=== PATIENT | female | born 1930 | race Caucasian/White ===

== ENCOUNTER 2016-03-17 11:19 | Emergency (ER) | payer MEDICARE, OTHER ==
--- NOTE | 2016-03-17 14:11 | ER Document Report ---
ED Hip Pain/Injury - General Chief Complaint: Hip Pain Stated Complaint: FALL;HIP PAIN Mode of Arrival: Ambulatory Information source: Patient Notes: 85 y/o F presents to ED c/o right anterior hip pain intermittently persistent approximately over the last 3 weeks. Pt reports pain is non-radiating and worse with movement of right leg, weight bearing, and ambulation. States has to lean on right leg due to chronic left leg weakness. had left hip replacement approximately 5 yrs ago but has not had any procedures on right hip. Reports was walking in her home today when the pain caused her to gradually fall. States did not directly strike hip, head, neck, or back. 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 Denies fever or recent illness, abd pain, n/v, dysuria or hematuria, blood in stool, erythema/ bruising/warmth to hip, swelling or color changes to extremity. - HPI Patient complains to provider of: Hip Where: Home Onset/Duration: Intermittent, Persistent Quality of pain: Achy Severity: Moderate Pain Level: 3 Symptoms prior to fall: None Symptoms since fall: None Skin Color: Normal Skin Temperature: Warm Rotation of extremity: None Pain with palpation of the pelvis: No Use of anticoagulant: No: ASA, Lovenox, Plavix, Pradexa, Warfarin Associated Symptoms: None. denies: Loss of control/bowel, Loss of control/ bladder, Motor loss, Sensory loss, Other - Related Data Allergies/Adverse Reactions: Penicillins Allergy (Severe, Verified 04/08/12 09:46) Hives Sulfa (Sulfonamide Antibiotics) Allergy (Severe, Verified 04/08/12 09:46) Hives Past Medical History - General Information source: Patient - Social History Smoking Status: Never Smoker Frequency of alcohol use: None Drug Abuse: None Lives with: Alone Family History: Reviewed & Not Pertinent - Past Medical History Cardiac Medical History: Denies: Hx Atrial Fibrillation, Hx Congestive Heart Failure, Hx Coronary Artery Disease, Hx Heart Attack, Hx Hypercholesterolemia, Hx Hypertension, Hx Peripheral Vascular Disease, Hx Pulmonary Embolism, Hx Heart Murmur Pulmonary Medical History: Reports: Hx Bronchitis, Hx COPD Denies: Hx Asthma, Hx Pneumonia, Hx Respiratory Failure, Hx Sleep Apnea, Hx Tuberculosis Neurological Medical History: Denies: Hx Cerebrovascular Accident, Hx Seizures Endocrine Medical History: Reports: Hx Hyperthyroidism - no meds//thyroid sx. Denies: Hx Graves' Disease, Hx Hypothyroidism Renal/ Medical History: Denies: Hx End Stage Renal Disease, Hx Ovarian Cysts, Hx Peritoneal Dialysis, Hx Pelvic Inflammatory Disease Malignancy Medical History: Denies: Hx Breast Cancer, Hx Cervical Cancer, Hx Leukemia, Hx Lung Cancer, Hx Ovarian Cancer GI Medical History: Reports: Hx Gastroesophageal Reflux Disease. Denies: Hx Crohn's Disease, Hx Hiatal Hernia, Hx Irritable Bowel, Hx Liver Failure, Hx Ulcer Musculoskeltal Medical History: Reports Hx Arthritis, Denies Hx Fibromyalgia, Denies Hx Multiple Sclerosis, Denies Hx Muscular Dystrophy Psychiatric Medical History: Denies: Hx Bipolar Disorder, Hx Dementia, Hx Depression, Hx Post Traumatic Stress Disorder, Hx Schizophrenia Traumatic Medical History: Denies: Hx Fractures Infectious Medical History: Denies: Hx HIV Past Surgical History: Reports: Hx Appendectomy - 2006, Hx Hysterectomy - 1971, Hx Orthopedic Surgery - neck, back, knee, left hip, Hx Tonsillectomy - as child. Denies: Hx Bowel Surgery, Hx Section, Hx Cholecystectomy, Hx Colostomy, Hx Coronary Artery Bypass Graft, Hx Gastric Bypass Surgery, Hx Herniorrhaphy, Hx Mastectomy, Hx Pacemaker, Hx Tubal Ligation - Immunizations Hx Diphtheria, Pertussis, Tetanus Vaccination: Yes Hx Pneumococcal Vaccination: 12/07/09 Review of Systems - Review of Systems Constitutional: No symptoms reported EENT: No symptoms reported Cardiovascular: No symptoms reported Respiratory: No symptoms reported Gastrointestinal: No symptoms reported Genitourinary: No symptoms reported Female Genitourinary: No symptoms reported Musculoskeletal: See HPI Skin: No symptoms reported Hematologic/Lymphatic: No symptoms reported Neurological/Psychological: No symptoms reported -: Yes All other systems reviewed and negative Physical Exam - Vital signs Vitals: Temp Pulse Resp BP Pulse Ox 98.7 F 95 16 147/75 H 97 03/17/16 11:34 03/17/16 11:34 03/17/16 11:34 03/17/16 11:34 03/17/16 11:34 Interpretation: Normal - General General appearance: Appears well, Alert In distress: None - HEENT Head: Normocephalic, Atraumatic Eyes: Normal Pupils: PERRL - Respiratory Respiratory status: No respiratory distress Chest status: Nontender Breath sounds: Normal Chest palpation: Normal - Cardiovascular Rhythm: Regular Heart sounds: Normal auscultation Murmur: No Pulses: Normal: Radial, Posterior tibial, Dorsalis pedis Normal capillary refill: Yes - Abdominal Inspection: Normal Distension: No distension Bowel sounds: Normal Tenderness: Nontender Organomegaly: No organomegaly - Back Back: Normal, Nontender. No: Tender, Deformity/step-off, CVA tenderness, Vertebra tenderness, Scars, Scoliosis, Wounds, Other - Extremities General upper extremity: Normal inspection, Nontender, Normal color, Normal ROM , Normal strength, Normal temperature. No: Tender, Edema General lower extremity: Normal inspection, Nontender, Normal color, Normal ROM , Normal temperature, Normal weight bearing. No: Tender, Edema, Mojgan's sign Hip: Pain with ROM - pain to anterior right hip with movement of joint. distal motor and neurovascular fucntion appears intact. no tenderness with palpationt, erythema, bruising, swelling, warmth, or color changes.. No: Normal, Nontender , Tender, Abrasion, Deformity, Dislocation, Ecchymosis, Instability, Laceration , Unable to bear weight, Other Thigh: Normal, Nontender Knee: Normal, Nontender Calf: Normal, Nontender Ankle: Normal, Nontender Foot: Normal, Nontender - Neurological Neuro grossly intact: Yes Cognition: Normal Orientation: AAOx4 [place] Coma Scale Eye Opening: Spontaneous [place] Coma Scale Verbal: Oriented Juan Coma Scale Motor: Obeys Commands [place] Coma Scale Total: 15 Speech: Normal Motor strength normal: LUE, RUE, LLE, RLE Sensory: Normal - Psychological Associated symptoms: Normal affect, Normal mood - Skin Skin Temperature: Warm Skin Moisture: Dry Skin Color: Normal Course - Re-evaluation Re-evalutation: 03/17/16 14:14 Pt hemodynamically stable, in no distress, afebrile. Xray shows degenerative changes to right hip with no acute fracture or dislocation. Neurovascular function appears intact. No systemic symptoms or complaints. No suggestion or emergent infectious, inflammatory, or vascular etiology at this time. Patient appears stable for discharge and agrees with home care, follow-up with PCP and orthopedics, ED return precautions. Pt presentation and findings discussed with ED physician Dr. Looney who concurs with evaluation and treatment plan. - Vital Signs Vital signs: Temp Pulse Resp BP Pulse Ox 98.7 F 77 18 134/76 H 100 03/17/16 11:34 03/17/16 15:02 03/17/16 15:02 03/17/16 15:02 03/17/16 15:02 - Diagnostic Test Radiology reviewed: Image reviewed, Reports reviewed Discharge - Discharge Clinical Impression: Right hip pain Condition: Stable Disposition: HOME, SELF-CARE Instructions: Anti-Inflammatory Medication ([facility]), Arthritis ([facility]), Range of Motion Exercises ([facility]) Additional Instructions: Hip Pain, Nonspecific We did not find any fracture or dislocation as cause for your hip pain. There's no sign of blood clot, infection, or other serious disease. Possible causes of hip pain include muscle or joint inflammation, disc disease in the lower back, pressure on the nerves in the back, or reduced blood flow through the arteries of the leg. Rest the leg. Pain can be eased with an antiinflammatory pain medicine such as ibuprofen. If the pain involves a small area, a heating pad might help. Call the doctor or return if the leg becomes swollen, weak, discolored, or increasingly painful, or if you develop any other significant change in your health. Arthritis Your symptoms may be due to arthritis. Arthritis is an inflammation of the joints. There are many types -- osteoarthritis (due to "wear and tear"), auto- immmune arthritis (such as rheumatoid, lupus, Keon's, and others), and crystal -induced arthritis (such as gout and pseudogout). The physician's examination, combined with laboratory tests, will determine the cause of your arthritis. All types of arthritis are treated with antiinflammatory medications. Other medication may be required for special types of arthritis, or if your problem does not respond to the antiinflammatory medicine. Local warmth may be helpful. Move the involved joints through the full range of motion daily. Mild exercise is usually still possible for most persons with arthritis (ask your physician). Swimming provides good exercise without damaging the joints. Contact the physician if you are worsening in any way. Anti-Inflammatory Medication You have received a prescription for an antiinflammatory agent. This is an excellent, safe drug for pain control. In addition, it has potent antiinflammatory effects which are beneficial, especially in the treatment of injuries, arthritis, or tendonitis. It's best to take this medicine with food. Persons with ulcer disease or allergy to aspirin should notify their physician of this before taking this drug. Take the medication exactly as prescribed. Don't take additional doses unless instructed to do so by your doctor. If you develop wheezing, shortness of breath, hives, faintness, stomach pain, vomiting, or dark black stools, return for re-evaluation at once. Follow-up with your primary care provider and orthopedics tomorrow as discussed. Return to the Emergency Department for any persistent or worsening symptoms or concerns. Prescriptions: Naproxen [Naprosyn 375 Mg Tablet] 375 mg PO BIDP PRN #10 tablet PRN Reason: Forms: Elevated Blood Pressure Referrals: LYNNE DIAZ MD [Primary Care Provider] - Follow up tomorrow MAKENZIE MALLORY MD [ACTIVE STAFF] - Follow up as needed
[2016-03-17 15:03] VITALS: BP 134/76
== END 2016-03-17 15:01 | disposition home or self-care (01) ==
LOC: ER 11:19
DX: M25.551 Pain in right hip (principal); R53.1 Weakness; W19.XXXA Unspecified fall, initial encounter
CPT/HCPCS: 99283